=== PATIENT | female | born 1990 | race Caucasian/White ===

== ENCOUNTER 2016-09-23 17:38 | Emergency (ER) | payer OTHER ==
[~2016-09-23] VITALS: Ht 160 cm; Wt 95.5 kg
[~2016-09-23 17:38] MED LIST: EC-NAPROSYN500 MG PO; LOPRESSOR 550 MG/TAB PO; LYRICA 50MG CAP50 MG PO; LYRICA 75MG CAP75 MG PO; MACROBID 1100 MG/CAP PO; NEURONTIN600 MG/TAB PO; NORCO 325 MG-51 TAB PO; PERCOCET 325 MG1 TA2 PO; SOMA 350MG350 MG/TAB PO; SOMA250 MG PO; TOPROL XL 50MG50 MG PO; ULTRAM 50MG TAB50 MG PO
[2016-09-23 19:34] VITALS: BP 163/90; PULSE 104; TEMP 98.2
== END 2016-09-23 19:51 | disposition home or self-care (01) ==
LOC: COL.ER 17:38
DX: S16.1XXA Strain of muscle, fascia and tendon at neck level, initial encounter (principal); W10.9XXA Fall (on) (from) unspecified stairs and steps, initial encounter; Y92.008 Other place in unspecified non-institutional (private) residence as the place of occurrence of the external cause; I10 Essential (primary) hypertension; F17.210 Nicotine dependence, cigarettes, uncomplicated

== ENCOUNTER 2016-10-10 18:17 | Emergency (ER) | payer OTHER ==
[~2016-10-10] VITALS: Ht 160 cm; Wt 90.9 kg
[2016-10-10] MEDS ORDERED: ASPIRIN 32325 MG/TAB PO (18:29)
[2016-10-10] MEDS ORDERED: CARDIZEM CD360 MG PO (18:29)
[2016-10-10 18:50] LABS: BASO # 0.1 (0.0-0.2); BASO % 1.1 % (0.0-2.0); EOS # 0.4 (0.0-0.7); EOS % 3.2 % (0-4.0); GRAN % 58.2 % (42.2-75.2); HEMATOCRIT 37.2 % (37.0-47.0); HEMOGLOBIN 12.5 g/dl (12.5-16.0); LYMPH # 3.6 (1.2-3.4); LYMPH % 29.6 % (20.0-51.0); MEAN CELL VOLUME 86 fl (80.0-100.0); MEAN CORPUSCULAR HEMOGLOBIN 29 pg (27.0-31.0); MEAN CORPUSCULAR HGB CONC 34 g/dl (33.0-37.0); MEAN PLATELET VOLUME 10.2 fl (7.4-10.4); MONO # 0.9 (0.1-0.6); MONO % 7.1 % (1.7-9.3); PLATELET COUNT 320 K/mm3 (130-400); RED BLOOD COUNT 4.34 M/mm3 (4.10-5.30); REDCELL DISTRIBUTION WIDTH-CV 12.4 % (11.5-14.5)
[2016-10-10 18:54] LABS: ADJUSTED CALCIUM 8.9 mg/dL (8.4-10.2); ALANINE AMINOTRANSFERASE 58 U/L (9-52); ALBUMIN 4.3 gm/dL (3.5-5.0); ALKALINE PHOSPHATASE 85 U/L (50-136); ANION GAP 14 mmol/L (7-16); BILIRUBIN,TOTAL 0.5 mg/dL (0.0-1.0); BLOOD UREA NITROGEN 12 mg/dL (7-17); CALCIUM 9.1 mg/dL (8.4-10.2); CARBON DIOXIDE 24 mmol/L (22-30); CHLORIDE 103 mmol/L (98-107); CREATININE, serum 0.68 mg/dL (0.52-1.25); GLUCOSE 102 mg/dL (74-106); POTASSIUM 3.8 mmol/L (3.4-5.0); SODIUM 140 mmol/L (137-145); TOTAL PROTEIN 7.7 gm/dL (6.4-8.2)
[2016-10-10 19:10] LABS: PARTIAL THROMBOPLASTIN TIME 28.5 SECONDS (26.0-37.0); PROTHROMBIN TIME 10.7 SECONDS (9.7-12.8)
[2016-10-10 19:12] LABS: TROPONIN-I < 0.012 ng/mL (0.000-0.034)
[2016-10-10 20:52] VITALS: BP 112/76; PULSE 86
== END 2016-10-10 20:53 | disposition home or self-care (01) ==
LOC: COL.ER 18:17
PROVIDERS: Emergency Medicine
DX: R07.9 Chest pain, unspecified (principal); F41.9 Anxiety disorder, unspecified
CPT/HCPCS: J2060; J2765; J3010; J7030

== ENCOUNTER 2017-04-25 16:22 | Inpatient (IN) | payer OTHER ==
[2017-04-25] VITALS (114 sets, daily range): BP systolic 107–123; BP diastolic 65–80; PULSE 90–101; TEMP 97.8–98.8; O2SAT 93–99
[~2017-04-25] VITALS: Ht 160 cm; Wt 97.7 kg
[~2017-04-25 16:22] MED LIST changes: +ASPIRIN 32325 MG/TAB PO; +CARDIZEM CD360 MG PO
[2017-04-25] MEDS ORDERED: CARDIZEM120 MG PO (17:19)
[2017-04-25] MEDS ORDERED: TOPROL XL 25MG25 MG PO (17:19)
[2017-04-25] MEDS ORDERED: LYRICA 75MG CAP75 MG PO (17:20)
[2017-04-25] MEDS ORDERED: ULTRAM 50MG TAB50 MG PO (17:21)
[2017-04-25] MEDS ORDERED: ASPIRIN 81M81 MG/TA2 PO (17:21)
[2017-04-25] MEDS ORDERED: TAZTIA120 (17:46)
[2017-04-25] MEDS ORDERED: CARTIA XT120 MG PO (18:18)
--- NOTE | 2017-04-25 18:55 | NUR ---
Bedside report given to NUPUR Vega.
--- NOTE | 2017-04-25 20:00 | NUR ---
Assessment completed pt is alert and oriented. Pt denies c/o pain or discomfort. Pt tolerated 100% of dinner and IVF at 75/hr. Pt remains in A-Fib. Call light within reach and encouraged pt to use for any needs. Continue to monitor closely.
[2017-04-26] VITALS (277 sets, daily range): BP systolic 88–103; BP diastolic 61–75; PULSE 72–98; TEMP 96.9–97.6; O2SAT 55–100
[2017-04-26 05:12] LABS: TROPONIN-I < 0.012 ng/mL (0.000-0.034)
--- NOTE | 2017-04-26 07:12 | NUR ---
Report received from Pat RN and care resumed.
--- NOTE | 2017-04-26 08:32 | NUR ---
Assessment complete. See charting. Pt awake and resting at this time. Denies any pain. VSS. Pt helped up to chair and tolerated well. AM meds given. Waiting on cardiology at this time for possible cardioversion. Will continue to follow.
--- NOTE | 2017-04-26 10:56 | NUR ---
ELHAMM met with patient at bedside to discuss discharge planning. Patient lives in [place], [place] with her and children. She's independent with her ADLs and does not use any DME. She follows-up at [facility] and goes to their pharmacy for her meds. Patient anticipates going home upon discharge. No needs identified at this time.
--- NOTE | 2017-04-26 11:44 | NUR ---
First visit from the computer numerical control programmer. No spiritual needs right now.
[2017-04-26] MEDS ORDERED: TAMBOCOR 1100 MG/TAB PO (12:25)
[2017-04-26] MEDS ORDERED: ELIQUIS 5MG PO (12:25)
[2017-04-26] MEDS ORDERED: TOPROL XL 25MG25 MG PO (12:26)
--- NOTE | 2017-04-26 14:30 | NUR ---
Pt taken out for discharge at this time.
== END 2017-04-26 14:40 | disposition home or self-care (01) | DRG 310 ==
LOC: IMCU 16:22 → ICU 17:07
PROVIDERS: ADMIT Internal Medicine
PROC: 5A2204Z Restoration of Cardiac Rhythm, Single (ICD-10-PCS; principal; 2017-04-26)
DX: I48.0 Paroxysmal atrial fibrillation (principal); F17.210 Nicotine dependence, cigarettes, uncomplicated
CPT/HCPCS: 99222-AI; 99238